=== PATIENT | female | born 1960 | race Two or more races ===

== ENCOUNTER 2022-08-05 16:38 | Inpatient (IN) | payer MEDICARE, OTHER ==
[~2022-08-05] VITALS: Ht 162.6 cm; Wt 111.1 kg
--- NOTE | 2022-08-05 17:00 | NUR ---
[id number] FRM MCC FOR NOTED SOB, WHEEZING AND LOW O2 SATURATION ALBUTEROL GIVEN PT. PLACED ON BED, AWAKE-ALERT, BREATHING UNLABORED SATURATING AT 99% WITH 5LIT VIA NC
[2022-08-05] MEDS ORDERED: methylPREDNISolone SOD SUCC 125 MG/2ML VIAL ONE (17:24)
[2022-08-05] MEDS ORDERED: methylPREDNISolone SOD SUCC 125 MG/2ML VIAL IV ONE (17:30)
[2022-08-05] MEDS ORDERED: ALBUTEROL FS 2.5 MG/3 ML VIAL.NEB NEB ONE (17:30)
--- NOTE | 2022-08-05 17:30 | NUR ---
BLOOD DRAWN AND SENT TO LAB
[2022-08-05] MEDS ORDERED: ALBUTEROL FS 2.5 MG/3 ML VIAL.NEB ONE (17:32)
[2022-08-05 18:18] LABS: BASOPHILS % (AUTO) 0.2 % (0.0-2.0); EOSINOPHILS % (AUTO) 0.4 % (0.0-6.0); HEMATOCRIT 45 % (33-45); HEMOGLOBIN 14.8 g/dL (11.5-14.8); LYMPHOCYTES # (AUTO) 0.7 K/uL (0.8-4.8); LYMPHOCYTES % (AUTO) 8.9 % (20.0-44.0); MEAN CORPUSCULAR HGB CONC 33 g/dl (31.0-36.0); MEAN CORPUSCULAR VOLUME 91 fL (82-100); MONOCYTES # (AUTO) 0.7 K/uL (0.1-1.30); MONOCYTES % (AUTO) 9.1 % (2.0-12.0); NEUTROPHILS # (AUTO) 6.5 K/uL (1.8-8.9); NEUTROPHILS % (AUTO) 81.4 % (43.0-81.0); PLATELET COUNT (AUTO) 140 K/uL (150-450)
[2022-08-05 18:28] LABS: CALCIUM, SERUM 8.9 mg/dL (8.5-10.1); CREATININE 1.4 mg/dL (0.6-1.3); POTASSIUM 4.3 mmol/L (3.5-5.1)
[2022-08-05 18:41] LABS: ALBUMIN 3.8 g/dL (3.4-5.0); BILIRUBIN,DIRECT 0.2 mg/dL (0.0-0.2); BILIRUBIN,TOTAL 0.6 mg/dL (0.2-1.0); TOTAL PROTEIN, SERUM 8.1 g/dL (6.4-8.2)
--- NOTE | 2022-08-05 19:04 | NUR ---
SWAB FOR COVID19 SENT TO LAB
--- NOTE | 2022-08-05 19:07 | NUR ---
SWAB FOR RAPID INFLLUENZA SENT TO LAB
--- NOTE | 2022-08-05 19:13 | NUR ---
DTR CYSTRAL [phone]
[2022-08-05] MEDS ORDERED: CEFTRIAXONE 1 G in IV D5W 50 ML IV ONE (19:30)
[2022-08-05] MEDS ORDERED: CEFTRIAXONE 1GM BAG (ER ONLY) 50 ML IV ONE (19:46)
--- NOTE | 2022-08-05 20:59 | NUR ---
ROOM 109
[2022-08-05] MEDS ORDERED: ONDANSETRON HCL/PF 4 MG/2 ML VIAL IVP PRN (22:00)
[2022-08-05] MEDS ORDERED: MAG HYDROX/AL HYDROX/SIMETH 30 ML UDC PO PRN (22:00)
[2022-08-05] MEDS ORDERED: Z GUARD REMEDY 4 OZ OINT TP PRN (22:00)
[2022-08-05] MEDS ORDERED: MAGNESIUM HYDROXIDE 30 ML UDC PO PRN (22:00)
[2022-08-05] MEDS ORDERED: ZOLPIDEM TARTRATE 5 MG TABLET PO PRN (22:00)
[2022-08-05] MEDS ORDERED: ACETAMINOPHEN 325 MG TABLET PO PRN (22:00)
--- NOTE | 2022-08-05 22:21 | NUR ---
PT'S AGNES NARVAEZ AWARE THAT THE PATIENT IS GOING TO BE ADMITTED AND UPDATE OM HER CONDITION.
[2022-08-05 22:35] VITALS: BP 138/77
--- NOTE | 2022-08-05 22:35 | NUR ---
ELECTRICAL ACCESSORIES II ASSEMBLER RECEIVING NOTE RECEIVED PT VIA EVERT FROM ER. PT IS ABLE TO UNDERSTAND HUNGARIAN AND OCCITAN. PT SPEECH IS NOT CLEAR. O2 WAS 5L NC DURING TRANSFER. TELE MONITOR READING ST HR 102. IV ACCESS ON RFA #20G. SKIN IS INTACT. ALL SAFETY MEASURES IMPLEMENTED. WILL CONTINUE PLAN OF CARE AND ANTICIPATE NEEDS.
--- NOTE | 2022-08-05 22:35 | NUR ---
REPORT GIVEN TO SANTOSH RN ROOM 109 FOR ELSY
--- NOTE | 2022-08-05 23:42 | NUR ---
RN NOTE SPOKE TO STEVEN FROM [facility]. PER FACILITY NO POLST ON FILE AND PT IS FULL CODE.
[2022-08-06] VITALS: BP 126/82
[2022-08-06] MEDS: FUROSEMIDE 20 MG/2 ML VIAL IV SCH ×3 (01:27→21:12)
[2022-08-06] MEDS ORDERED: ALBUTEROL FS 2.5 MG/3 ML VIAL.NEB NEB PRN (01:30)
[2022-08-06] MEDS ORDERED: AZITHROMYCIN 500 MG VIAL ONE (02:47)
[2022-08-06] MEDS: AZITHROMYCIN 500 MG in IV D5W 250 ML IV SCH ×2 (02:49→21:12)
[2022-08-06 04:00] VITALS: BP 107/67
[2022-08-06 05:15] LABS: ABG BASE EXCESS 5.8 mmol/L; ABG PCO2 64.3 mmHg (35.0-45.0); ABG PH 7.338 (7.350-7.450); ABG PO2 113.4 mmHg (75.0-100.0); COHb 0.3 % (0.5-1.5); MetHb 0.6 % (0.0-1.5); O2Hb 97.1 % (94.0-97.0); SITE, ABG Right Radial; VENT MODE, BG NASAL CANNULA 40%
--- NOTE | 2022-08-06 06:41 | NUR ---
GANG SAWYER CLOSING NOTE PT ASLEEP IN BED, AROUSES EASILY. PT UNDERSTANDS TAJIK AND WOLOF, AND COMMUNICATES BACK WITH ASL. ON NC 5L, TOLERATING WELL, NO S/S OF DISTRESS, TELE MONITOR READING SR. IV ACCESS ON RFA #20G, INTACT AND PATENT. PUT A PUREWICK IN FOR STRICT I&O.ALL DUE MEDS GIVEN. ALL SAFETY MEASURES IN PLACE. CALL LIGHT WITHIN REACH. BED LOCKED AND IN LOWEST POSITION. WILL ENDORSE TO MORNING SHIFT
--- NOTE | 2022-08-06 07:20 | NUR ---
RN notes Received patient in bed. Patient is resting without active complaint. IV site is dry, intact and patent. Telemetry showed SR HR 83/min. Call garza is placed within reach. Bed is locked and placed in the lowest position. All safety measures have been implemented. Will continue monitoring and care.
[2022-08-06 08:00] VITALS: BP 109/60
[2022-08-06 08:22] LABS: BASOPHILS % (AUTO) 0.2 % (0.0-2.0); HEMATOCRIT 39 % (33-45); LYMPHOCYTES # (AUTO) 1.1 K/uL (0.8-4.8); LYMPHOCYTES % (AUTO) 15.6 % (20.0-44.0); MEAN CORPUSCULAR HGB CONC 33 g/dl (31.0-36.0); MEAN CORPUSCULAR VOLUME 92 fL (82-100); MONOCYTES % (AUTO) 13.9 % (2.0-12.0); NEUTROPHILS # (AUTO) 5.2 K/uL (1.8-8.9); NEUTROPHILS % (AUTO) 70.3 % (43.0-81.0); PLATELET COUNT (AUTO) 131 K/uL (150-450); RED BLOOD CELL COUNT(AUTO) 4.27 MIL/uL (4.0-5.2); WHITE BLOOD COUNT (AUTO) 7.4 K/uL (4.3-11.0)
[2022-08-06 08:42] LABS: ALBUMIN 3.2 g/dL (3.4-5.0); BILIRUBIN,TOTAL 0.3 mg/dL (0.2-1.0); CALCIUM, SERUM 7.9 mg/dL (8.5-10.1); CREATININE 1.3 mg/dL (0.6-1.3); MAGNESIUM 2.5 mg/dL (1.8-2.4); PHOSPHORUS 4.8 mg/dL (2.5-4.9); POTASSIUM 4.3 mmol/L (3.5-5.1)
[2022-08-06] MEDS: CARBAMAZEPINE 200 MG TABLET PO SCH ×2 (08:57→16:42)
[2022-08-06] MEDS: DEXAMETHASONE SOD PHOSPHATE 10 MG/ML VIAL IV SCH (08:57)
[2022-08-06] MEDS: CARVEDILOL 6.25 MG TABLET PO SCH ×2 (08:57→16:40)
[2022-08-06] MEDS ORDERED: PANTOPRAZOLE 40 MG VIAL IV SCH (09:00)
[2022-08-06] MEDS ORDERED: CEFTRIAXONE 1 G in IV D5W 50 ML IV SCH (09:00)
[2022-08-06] MEDS: HEPARIN SODIUM, PORCINE 5000 UNITS/1 ML VIAL SQ SCH ×2 (09:03→21:14)
--- NOTE | 2022-08-06 10:00 | NUR ---
RN notes Reduced oxygen to 3L via NC. Patient does not have SOB. Will check SpO2.
[2022-08-06 12:00] VITALS: BP 106/68
--- NOTE | 2022-08-06 12:00 | NUR ---
OPAL notes SpO2 97% with 3L oxygen given via NC. No Sob. Assisted patient to sit out in chair for lunch. Stable gait is observed. Addendum: 08/06/22 at 1444 by STEPHY RODRIGUEZ RN Call garza is placed within reach.
[2022-08-06] MEDS: CEFTRIAXONE 2 G in IV D5W 100 ML IV SCH (13:06)
[2022-08-06] MEDS ORDERED: ROSU10TA2 PO (13:13)
[2022-08-06 16:00] VITALS: BP 100/51
--- NOTE | 2022-08-06 18:50 | NUR ---
RN notes Patient is resting in bed without active complaint. Telemetry showed SR with HR 89/min. BP is on low-side without active complaint. SpO2 WNL with 3L oxygen via NC. Call garza is placed within reach. Bed is locked and placed in the lowest position. All safety measures have been implemented. Will endorse PM nurse to continue monitoring and care.
[2022-08-06 20:00] VITALS: BP 112/70
--- NOTE | 2022-08-06 20:02 | NUR ---
RN NOTE RECEIVED PT IN BED, AWAKE ALERT. ON O2 AT 3L VIA NC. NOT IN ANY DISTRESS. DENIES ANY PAIN OR SOB. ALL SR ON TELE MONITOR SR WITH HR 82. SAFETY MEASURES IN PLACE. CALL LIGHT WITHIN REACH. WILL CONTINUE TO MONITOR
[2022-08-07] VITALS (7 sets, daily range): BP systolic 88–135; BP diastolic 58–94
--- NOTE | 2022-08-07 06:43 | NUR ---
RN NOTE PT AWAKE. TITRATED O2 TO 2L. PT NOT IN ANY DISTRESS. DENIES ANY PAIN OR SOB. SR ON TELE MONITOR HR 96. REMAIN AFEBRILE. ABLE TO MAKE NEEDS KNOWN. ALL SAFETY REMAIN IN PLACE. CALL LIGHT WITHIN REACH AT ALL TIMES. WILL ENDORSE TO AM SHIFT NURSE FOR ELSY.
--- NOTE | 2022-08-07 07:15 | NUR ---
RN notes Received patient in bed. She is asleep and is not in distress. Telemetry showed SR HR 100/min. IV site is dry and intact. Call garza is placed within reach. Bed is locked and placed in the lowest position. All safety measures have been implemented. Will continue monitoring and care.
[2022-08-07 07:57] LABS: ALBUMIN 3.2 g/dL (3.4-5.0); BILIRUBIN,TOTAL 0.2 mg/dL (0.2-1.0); CALCIUM, SERUM 7.8 mg/dL (8.5-10.1); CREATININE 1.4 mg/dL (0.6-1.3); MAGNESIUM 2.4 mg/dL (1.8-2.4); PHOSPHORUS 5.3 mg/dL (2.5-4.9); POTASSIUM 4.3 mmol/L (3.5-5.1); TOTAL PROTEIN, SERUM 6.6 g/dL (6.4-8.2)
[2022-08-07] MEDS: CARVEDILOL 6.25 MG TABLET PO SCH ×2 (09:18→16:42)
[2022-08-07] MEDS: CARBAMAZEPINE 200 MG TABLET PO SCH ×2 (09:18→16:41)
[2022-08-07] MEDS: PANTOPRAZOLE 40 MG TABLET.DR PO SCH (09:18)
[2022-08-07] MEDS: FUROSEMIDE 20 MG/2 ML VIAL IV SCH (09:19)
[2022-08-07] MEDS: DEXAMETHASONE SOD PHOSPHATE 10 MG/ML VIAL IV SCH (09:20)
[2022-08-07] MEDS: HEPARIN SODIUM, PORCINE 5000 UNITS/1 ML VIAL SQ SCH ×2 (09:28→21:19)
[2022-08-07] MEDS ORDERED: CLOT15CR5 TD (11:11)
[2022-08-07] MEDS ORDERED: CARV12.52 PO (11:11)
[2022-08-07] MEDS ORDERED: CARB200T PO (11:11)
[2022-08-07] MEDS ORDERED: CARB200T8 PO (11:11)
[2022-08-07] MEDS ORDERED: ALBU2SYR3 PO (11:11)
--- NOTE | 2022-08-07 11:24 | NUR ---
RN notes Patient's blood pressure was 88/57mmHg. Checked both arms and achieved similar results. No discomfort was reported. Informed Dr. Castillo about hypotension, who said to order bolus 500mL Q4H. Done as ordered.
[2022-08-07] MEDS ORDERED: IV NS 0.9% 500 ML IV ONE (11:30)
[2022-08-07 12:01] LABS: EOSINOPHILS % (AUTO) 0.7 % (0.0-6.0); HEMATOCRIT 41 % (33-45); HEMOGLOBIN 13.2 g/dL (11.5-14.8); LYMPHOCYTES % (AUTO) 16.9 % (20.0-44.0); MEAN CORPUSCULAR HGB CONC 33 g/dl (31.0-36.0); MEAN CORPUSCULAR VOLUME 93 fL (82-100); MONOCYTES # (AUTO) 1.1 K/uL (0.1-1.30); MONOCYTES % (AUTO) 18.3 % (2.0-12.0); NEUTROPHILS % (AUTO) 64.1 % (43.0-81.0); PLATELET COUNT (AUTO) 112 K/uL (150-450); RED BLOOD CELL COUNT(AUTO) 4.39 MIL/uL (4.0-5.2); WHITE BLOOD COUNT (AUTO) 6.2 K/uL (4.3-11.0)
--- NOTE | 2022-08-07 12:30 | NUR ---
RN notes Checked patient again and noticed that her forearm became edematous from the fluid challenge. Stopped the IVF. Will keep observe of IV site.
--- NOTE | 2022-08-07 12:30 | NUR ---
RN notes Rechecked BP, 104/49mmHg. No discomfort.
[2022-08-07] MEDS: IPRATROPIUM/ALBUTEROL INHALER IH SCH ×2 (13:43→20:14)
--- NOTE | 2022-08-07 16:06 | NUR ---
SS CONSULT requested for assistance with DPOA. SW will follow up at a later time.
[2022-08-07] MEDS: CEFTRIAXONE 2 G in IV D5W 100 ML IV SCH (18:54)
--- NOTE | 2022-08-07 18:56 | NUR ---
RN notes Right midline has been inserted by vascular nurse. It's patent and dry. Started rocephin that was due 1200.
--- NOTE | 2022-08-07 19:34 | NUR ---
RN notes Patient is resting in bed without active complaint. SpO2 95% with 2L oxygen given via NC. Telemetry showed SR. Right UA midline is working well. Call garza is placed within reach. Bed is locked and placed in the lowest position. All safety measures have been implemented. WIll endorse PM nurse to continue monitoring and care.
--- NOTE | 2022-08-07 20:21 | NUR ---
RN NOTE PT AWAKE, ALERT, WATCHING TV. DENIES ANY PAIN OR SOB. ON 2L O2 SATING 95%. EDGAR ML PATENT AND INTACT. ALL SAFETY MEASURES IN PLACE. WILL CONTINUE TO MONITOR.
[2022-08-07] MEDS: AZITHROMYCIN 500 MG in IV D5W 250 ML IV SCH (21:17)
--- NOTE | 2022-08-07 23:52 | NUR ---
RT NOTE PT AWAKE/ALERT AND RESPONDING TO COMMANDS. PT PLACED ON BIPAP WITH CURRENT SETTINGS OF 15/5, BUR 16, 30%. MASK SECURED WITH MEPILEX. ALARMS ON AND AUDIBLE. BIPAP PLUGGED TO RED OUTLET. NO RESPIRATORY DISTRESS NOTED. WILL CONTINUE TO MONITOR CLOSELY. OPAL JOHNSON AWARE.
[2022-08-08] VITALS: BP 120/67
--- NOTE | 2022-08-08 01:00 | NUR ---
RN NOTE PT TOLERATING BIPAP SETTINGS. NOT IN ANY DISTRESS. WILL CONTINUE TO MONITOR.
[2022-08-08] MEDS: IPRATROPIUM/ALBUTEROL INHALER IH SCH ×4 (01:30→20:14)
[2022-08-08 04:00] VITALS: BP 117/61
--- NOTE | 2022-08-08 05:55 | NUR ---
RT NOTE PT TOLERATED NOC BIPAP WELL WITH NO COMPLICATIONS. PT REMOVED OFF BIPAP AT THIS TIME AND PLACED ON 28% NASAL CANNULA. SPO2 @ 95%, HR 80, RR 18. NO RESPIRATORY DISTRESS NOTED.
[2022-08-08 06:17] LABS: BASOPHILS % (AUTO) 0.2 % (0.0-2.0); EOSINOPHILS % (AUTO) 0.9 % (0.0-6.0); HEMATOCRIT 35 % (33-45); HEMOGLOBIN 11.6 g/dL (11.5-14.8); LYMPHOCYTES # (AUTO) 1.4 K/uL (0.8-4.8); LYMPHOCYTES % (AUTO) 33.7 % (20.0-44.0); MEAN CORPUSCULAR HGB CONC 33 g/dl (31.0-36.0); MEAN CORPUSCULAR VOLUME 92 fL (82-100); MONOCYTES # (AUTO) 0.7 K/uL (0.1-1.30); MONOCYTES % (AUTO) 16.2 % (2.0-12.0); NEUTROPHILS # (AUTO) 2.1 K/uL (1.8-8.9); PLATELET COUNT (AUTO) 104 K/uL (150-450); RED BLOOD CELL COUNT(AUTO) 3.81 MIL/uL (4.0-5.2); WHITE BLOOD COUNT (AUTO) 4.2 K/uL (4.3-11.0)
--- NOTE | 2022-08-08 07:10 | NUR ---
RN NOTE RECEIVED PATIENT IN BED RESTING ALERT ORIENTED X2-3 VERBALLY RESPONSIVE,ON 2L OXYGEN VIA NASAL CANNULA,O2:93% IV SITE IS ON RIGHT UPPER ARM MIDLINE INTACT PATENT,INCONTINENT BOWEL/BLADDER,FEMALE PUREWEAK IN PLACE,SAFETY MEASURE IMPLEMENT BED IN LOW POSITION AND LOCKED,BED ALARM IS ON,CONTINUE TO MONITOR.
[2022-08-08 07:14] LABS: ALBUMIN 2.7 g/dL (3.4-5.0); BILIRUBIN,TOTAL 0.2 mg/dL (0.2-1.0); CALCIUM, SERUM 7.7 mg/dL (8.5-10.1); CREATININE 1.4 mg/dL (0.6-1.3); MAGNESIUM 2.3 mg/dL (1.8-2.4); PHOSPHORUS 4.8 mg/dL (2.5-4.9); POTASSIUM 3.3 mmol/L (3.5-5.1); TOTAL PROTEIN, SERUM 6.3 g/dL (6.4-8.2)
--- NOTE | 2022-08-08 07:20 | NUR ---
RN NOTE PT BACK ON 2L O2 VIA NC. TOLERATING WELL. PT DENIES ANY PAIN OR SOB. DUE MEDS WERE GIVEN ORDERED. CALL LIGHT WITHIN REACH AT ALL TIMES. ENDORSED TO LUIS F FOR ELSY.
[2022-08-08 08:00] VITALS: BP 104/62
[2022-08-08] MEDS: HEPARIN SODIUM, PORCINE 5000 UNITS/1 ML VIAL SQ SCH ×2 (08:14→20:01)
[2022-08-08] MEDS: PANTOPRAZOLE 40 MG TABLET.DR PO SCH (08:15)
[2022-08-08] MEDS: CARBAMAZEPINE 200 MG TABLET PO SCH ×2 (08:15→16:32)
[2022-08-08 08:16] LABS: ABG BASE EXCESS 5.6 mmol/L; ABG PH 7.287 (7.350-7.450); ABG PO2 76.7 mmHg (75.0-100.0); COHb 0.1 % (0.5-1.5); MetHb 0.4 % (0.0-1.5); O2Hb 94.2 % (94.0-97.0); SITE, ABG Right Radial
[2022-08-08] MEDS: DEXAMETHASONE SOD PHOSPHATE 10 MG/ML VIAL IV SCH (08:16)
[2022-08-08] MEDS: CARVEDILOL 6.25 MG TABLET PO SCH ×2 (08:56→16:31)
--- NOTE | 2022-08-08 09:00 | NUR ---
RN NOTE COREG 12.5 MG NOT GIVEN DUE TO BP 104/62 CONTINUE TO MONITOR.
--- NOTE | 2022-08-08 09:34 | NUR ---
Patient is awkae, alert, orientedx3, no complaint of pain, no sob, SPO2-97% on 1l/min, RT change O2 to 1l/min as per order. Vital signs are stable.
[2022-08-08] MEDS ORDERED: POTASSIUM CHLORIDE 20 MEQ TAB.PRT.SR PO ONE (11:00)
[2022-08-08] MEDS: CEFTRIAXONE 2 G in IV D5W 100 ML IV SCH (11:56)
[2022-08-08 12:00] VITALS: BP 134/74
[2022-08-08 15:14] LABS: C-REACTIVE PROTEIN 14.4 mg/dL (0.0-0.9)
[2022-08-08 15:23] LABS: LYMPHOCYTES % (MANUAL) 33 % (16-48); MONOCYTES % (MANUAL) 12 % (0-11.0); NEUTROPHILS % (MANUAL) 55 (42-76)
[2022-08-08 16:00] VITALS: BP 132/69
--- NOTE | 2022-08-08 18:38 | NUR ---
PATIENT IS AWAKE,ALERT,ORIENTEDX3, NO COMPLAINT OF PAIN, VITAL SIGNS ARE STABLE, STILL ON O2-1L/MIN, SPO2-98%, NO SIGNS OF SHORT OF BREATHE, PATIENT EATS HER MEAL WELL.
--- NOTE | 2022-08-08 19:40 | NUR ---
POWER EQUIPMENT MECHANICS INSTRUCTOR OPENING NOTE RECEIVED PATIENT IN BED AWAKE ALERT ORIENTED X 2-3 VERBALLY RESPONSIVE, ON 1L OXYGEN VIA NASAL CANNULA,O2 94% IV SITE IS ON RIGHT UPPER ARM MIDLINE INTACT PATENT RUNNING NS AT TKO, ON TELEMONITORING CURRENTLY READING SR, PT IS INCONTINENT BOWEL/BLADDER, WITH FEMALE PUREWICK IN PLACE, SAFETY MEASURES IMPLEMENTED, BED IN LOWEST AND LOCKED POSITION, BED ALARM IS ON, WILL CONTINUE TO MONITOR THROUGHOUT THE SHIFT.
[2022-08-08 20:00] VITALS: BP 90/51
[2022-08-08] MEDS: AZITHROMYCIN 500 MG in IV D5W 250 ML IV SCH (20:00)
--- NOTE | 2022-08-08 20:17 | NUR ---
RT NOTE PT PLACED ON BIPAP AT THIS TIME. MASK SECURED. NO RESPIRATORY DISTRESS NOTED. WILL CONTINUE TO MONITOR T/O SHIFT. OPAL GARCIA @ BEDSIDE.
[2022-08-09] VITALS (12 sets, daily range): BP systolic 94–121; BP diastolic 55–72
[2022-08-09] MEDS: IPRATROPIUM/ALBUTEROL INHALER IH SCH ×4 (01:30→19:30)
--- NOTE | 2022-08-09 07:00 | NUR ---
STOCKROOM ASSOCIATE CLOSING NOTE PATIENT REMAINS IN BED AWAKE ALERT ORIENTED X 2-3 VERBALLY RESPONSIVE, ON NOC BIPAP, O2 94% IV SITE IS ON RIGHT UPPER ARM MIDLINE INTACT PATENT RUNNING NS AT TKO, ON TELEMONITORING CURRENTLY READING SR AT 82, PT IS INCONTINENT BOWEL/BLADDER, WITH FEMALE PUREWICK IN PLACE, ALL DUE MEDS GIVEN, KEPT DRY AND CLEAN, SAFETY MEASURES IMPLEMENTED, BED IN LOWEST AND LOCKED POSITION, BED ALARM IS ON, WILL ENDORSE TO AM SHIFT NURSE FOR CONTINUITY OF CARE.
[2022-08-09 07:17] LABS: BASOPHILS % (AUTO) 0.2 % (0.0-2.0); EOSINOPHILS % (AUTO) 2.3 % (0.0-6.0); HEMATOCRIT 39 % (33-45); HEMOGLOBIN 12.7 g/dL (11.5-14.8); LYMPHOCYTES # (AUTO) 1.5 K/uL (0.8-4.8); MEAN CORPUSCULAR HGB CONC 33 g/dl (31.0-36.0); MEAN CORPUSCULAR VOLUME 92 fL (82-100); MONOCYTES # (AUTO) 0.6 K/uL (0.1-1.30); MONOCYTES % (AUTO) 16.5 % (2.0-12.0); NEUTROPHILS # (AUTO) 1.6 K/uL (1.8-8.9); PLATELET COUNT (AUTO) 117 K/uL (150-450); RED BLOOD CELL COUNT(AUTO) 4.24 MIL/uL (4.0-5.2); WHITE BLOOD COUNT (AUTO) 3.8 K/uL (4.3-11.0)
--- NOTE | 2022-08-09 07:30 | NUR ---
RN NOTE RECEIVED PATIENT IN BED ALERT ORIENTED 2-3 VERBALLY RESPONSIVE ON 3L OXYGEN VIA NASAL CANNULA O2:94% IV SITE IS ON RIGHT UPPER ARM MIDLINE INTACT PATENT, INCONTINENT BOWEL/BLADDER, SAFETY MEASURE IMPLEMENT BED IN LOW POSITION AND LOCKED,CALL LIGHT WITHIN REACH CONTINUE TO MONITOR
[2022-08-09 07:32] LABS: ALBUMIN 2.7 g/dL (3.4-5.0); BILIRUBIN,TOTAL 0.2 mg/dL (0.2-1.0); CALCIUM, SERUM 8.1 mg/dL (8.5-10.1); CREATININE 1.2 mg/dL (0.6-1.3); MAGNESIUM 2.7 mg/dL (1.8-2.4); PHOSPHORUS 3.3 mg/dL (2.5-4.9); POTASSIUM 3.7 mmol/L (3.5-5.1); TOTAL PROTEIN, SERUM 6.8 g/dL (6.4-8.2)
[2022-08-09] MEDS: CARVEDILOL 6.25 MG TABLET PO SCH ×2 (08:01→16:19)
[2022-08-09] MEDS: PANTOPRAZOLE 40 MG TABLET.DR PO SCH (08:01)
[2022-08-09] MEDS: HEPARIN SODIUM, PORCINE 5000 UNITS/1 ML VIAL SQ SCH ×2 (08:02→21:57)
[2022-08-09] MEDS: DEXAMETHASONE SOD PHOSPHATE 10 MG/ML VIAL IV SCH (08:08)
[2022-08-09] MEDS: CARBAMAZEPINE 200 MG TABLET PO SCH ×2 (08:37→16:11)
--- NOTE | 2022-08-09 09:40 | NUR ---
RECEIVED PATIENT IS AWAKE,ALERT,ORIENTEDX3, NO SIGNS AND SYMPTOMS OF IN DISTRESS, CONTINUE MONITORING
[2022-08-09] MEDS: CEFTRIAXONE 2 G in IV D5W 100 ML IV SCH (12:31)
[2022-08-09 14:08] LABS: ABG BASE EXCESS 4.6 mmol/L; ABG OXYGEN SATURATION 96.9 % (92.0-98.5); ABG PCO2 82.5 mmHg (35.0-45.0); ABG PH 7.242 (7.350-7.450); ABG PO2 98.6 mmHg (75.0-100.0); AaDO2 7.1 mmHg; COHb 0.9 % (0.5-1.5); MetHb 0.5 % (0.0-1.5); O2Hb 95.5 % (94.0-97.0); SITE, ABG Right Radial; VENT MODE, BG 2.5 LPM
[2022-08-09 15:29] LABS: BAND % (MANUAL) 2 % (0.0-5.0); EOSINOPHILS % (MANUAL) 4 % (0-4); LYMPHOCYTES % (MANUAL) 40 % (16-48)
[2022-08-09 15:30] LABS: MONOCYTES % (MANUAL) 12 % (0-11.0)
[2022-08-09 15:31] LABS: NEUTROPHILS % (MANUAL) 42 (42-76)
--- NOTE | 2022-08-09 15:44 | NUR ---
STILL AWAITS ICU BED ,PER ICU CHARGE BED WILL BE AVAILABLE BY 5PM,NURSING SUP AWARE.
--- NOTE | 2022-08-09 16:45 | NUR ---
RN NOTE PATIENT TRANSFERRED TO ICU ON ACLS PROTOCOL PER ORDER.
--- NOTE | 2022-08-09 16:48 | NUR ---
@3014 PATIENT TRANSFERED TO ICU 255 FOR FURTHER MONITORING, REPORT GIVEN TO ICU NURSE STEPHEN, VITAL SIGNS ARE STABLE, SPO2-95% ON 2L/MIN VIA N/C. INFORMED FAMILY MEMBER , BRYNN BOONE (SISTER), INFORMED BOARD AND CARE FACILITY WELL AND SPOKE TO
[2022-08-09 17:38] LABS: ABG BASE EXCESS 7.7 mmol/L; ABG PCO2 85.9 mmHg (35.0-45.0); ABG PH 7.263 (7.350-7.450); COHb 0.9 % (0.5-1.5); MetHb 0.5 % (0.0-1.5); O2Hb 95.6 % (94.0-97.0); SITE, ABG Right Radial; VENT MODE, BG BIPAP 15/5 R 16 30%
--- NOTE | 2022-08-09 19:37 | NUR ---
LOCK UP WORKER. INITIAL ASSESSMENT. RECEIVED THE PT REST IN BED. AWAKE, BIPAP ON. SETTINGS 25/5, RATE IS 16, FIO2 30%. SAT 97%. NO ACUTE DISTRESS NOTED. ASSISTANT FOOTBALL COACH SHOWING .A FIB. HOB ELEVATED. IV RT UPPER KATHYA MID LINE. WILL CONTINUE TO MONITOR VITALS.
[2022-08-09 20:16] LABS: ABG BASE EXCESS 4.5 mmol/L; ABG OXYGEN SATURATION 94.2 % (92.0-98.5); ABG PCO2 69.4 mmHg (35.0-45.0); ABG PH 7.296 (7.350-7.450); ABG PO2 71.3 mmHg (75.0-100.0); AaDO2 61.1 mmHg; COHb 1.2 % (0.5-1.5); MetHb 0.3 % (0.0-1.5); O2Hb 92.8 % (94.0-97.0); SITE, ABG Right Brachial; VENT MODE, BG BIPAP 25/5 RR16 30%
[2022-08-09] MEDS: AZITHROMYCIN 500 MG in IV D5W 250 ML IV SCH (21:56)
[2022-08-10] VITALS (24 sets, daily range): BP systolic 99–144; BP diastolic 55–73
[2022-08-10] MEDS: IPRATROPIUM/ALBUTEROL INHALER IH SCH ×4 (01:30→19:41)
--- NOTE | 2022-08-10 03:03 | NUR ---
AM CARE GIVEN. REMAINING SAME OXYGEN TOLERATED WELL. SATURATION 98%. NO ACUTE DISTRESS NOTED. SHAREPOINT ANALYST SHOWING NSR. TKO RUNNING. AFEBRILE. WILL CONTINUE TO MONITOR VITALS
[2022-08-10 05:06] LABS: BASOPHILS % (AUTO) 0.2 % (0.0-2.0); EOSINOPHILS % (AUTO) 1.2 % (0.0-6.0); HEMATOCRIT 38 % (33-45); HEMOGLOBIN 12.2 g/dL (11.5-14.8); LYMPHOCYTES # (AUTO) 1.6 K/uL (0.8-4.8); LYMPHOCYTES % (AUTO) 33.5 % (20.0-44.0); MEAN CORPUSCULAR HGB CONC 33 g/dl (31.0-36.0); MEAN CORPUSCULAR VOLUME 92 fL (82-100); MONOCYTES # (AUTO) 0.7 K/uL (0.1-1.30); MONOCYTES % (AUTO) 14.7 % (2.0-12.0); NEUTROPHILS # (AUTO) 2.5 K/uL (1.8-8.9); NEUTROPHILS % (AUTO) 50.4 % (43.0-81.0); PLATELET COUNT (AUTO) 123 K/uL (150-450); RED BLOOD CELL COUNT(AUTO) 4.09 MIL/uL (4.0-5.2); WHITE BLOOD COUNT (AUTO) 4.9 K/uL (4.3-11.0)
[2022-08-10 05:19] LABS: ALBUMIN 2.7 g/dL (3.4-5.0); BILIRUBIN,TOTAL 0.2 mg/dL (0.2-1.0); CALCIUM, SERUM 8.4 mg/dL (8.5-10.1); CREATININE 1.2 mg/dL (0.6-1.3); MAGNESIUM 2.6 mg/dL (1.8-2.4); PHOSPHORUS 3.7 mg/dL (2.5-4.9); POTASSIUM 3.7 mmol/L (3.5-5.1); TOTAL PROTEIN, SERUM 6.6 g/dL (6.4-8.2)
--- NOTE | 2022-08-10 07:00 | NUR ---
RN NOTES RECEIVED THE PT ON BED. A/O x3, ON BIPAP , TOLERATING SETTINGS 25/5, RATE IS 16, FIO2 30%. WELL, SAT 97%. NO ACUTE DISTRESS NOTED. INVENTORY CONTROL SPECIALIST SHOWING SR HR IN 60'S, HOB ELEVATED. IV RT UPPER KATHYA MID LINE. WILL CONTINUE TO MONITOR
[2022-08-10] MEDS: PANTOPRAZOLE 40 MG TABLET.DR PO SCH (08:12)
[2022-08-10] MEDS: CARBAMAZEPINE 200 MG TABLET PO SCH ×2 (08:12→16:33)
[2022-08-10] MEDS: CARVEDILOL 6.25 MG TABLET PO SCH ×2 (08:13→16:33)
[2022-08-10] MEDS: HEPARIN SODIUM, PORCINE 5000 UNITS/1 ML VIAL SQ SCH ×2 (08:14→21:28)
[2022-08-10] MEDS: DEXAMETHASONE SOD PHOSPHATE 10 MG/ML VIAL IV SCH (08:14)
--- NOTE | 2022-08-10 11:00 | NUR ---
RN NOTES PT ON 1L O2 N/C , TOLERATING WELL, O2 SAT WNL, CONTINUE TO MONITOR.
[2022-08-10 11:30] LABS: ABG PCO2 62.5 mmHg (35.0-45.0); ABG PO2 59.6 mmHg (75.0-100.0); COHb 0.2 % (0.5-1.5); MetHb 0.4 % (0.0-1.5); O2Hb 89.5 % (94.0-97.0); SITE, ABG Right Radial; VENT MODE, BG N/C
[2022-08-10] MEDS: CEFTRIAXONE 2 G in IV D5W 100 ML IV SCH (12:03)
--- NOTE | 2022-08-10 13:00 | NUR ---
RN NOTES PT ON 2L O2 N/C , O2 SAT WNL, , SOB ON EXERTION, CONTINUE TO MONITOR .
--- NOTE | 2022-08-10 17:00 | NUR ---
SS Note: SW followed up with the pt.'s sister, Quyen Pang [phone] who stated they are interested in becoming the pt.'s DPOA. SW provided education that because the pt. has Hx. of cognitive delay the pt. may not have the capacity to provide informed consent. BRANDY emailed Quyen ([email or web address]) educational material on conservatorship and referred her [facility] at [phone] for assistance with applying. BRANDY also informed them that [facility] may be able to assist the family with this as well. Quyen expressed understanding and stated they will follow up.
--- NOTE | 2022-08-10 18:08 | NUR ---
RN NOTES PT REMAINS ON 1 L O2 N/C , O2 SAT WNL, PT ALERT/ MOUTH WORDS , ON TELE SR , NO DISTESS NOTED, WILL ENDORSE TO INTERNAL WHOLESALER NURSE FOR CONTINUITY OF CARE
[2022-08-11] VITALS (23 sets, daily range): BP systolic 99–146; BP diastolic 58–80
[2022-08-11 04:29] LABS: BASOPHILS % (AUTO) 0.3 % (0.0-2.0); EOSINOPHILS % (AUTO) 0.6 % (0.0-6.0); HEMATOCRIT 37 % (33-45); HEMOGLOBIN 12.3 g/dL (11.5-14.8); LYMPHOCYTES # (AUTO) 1.8 K/uL (0.8-4.8); LYMPHOCYTES % (AUTO) 35.2 % (20.0-44.0); MEAN CORPUSCULAR HGB CONC 33 g/dl (31.0-36.0); MEAN CORPUSCULAR VOLUME 91 fL (82-100); MONOCYTES # (AUTO) 0.6 K/uL (0.1-1.30); MONOCYTES % (AUTO) 11.5 % (2.0-12.0); NEUTROPHILS # (AUTO) 2.8 K/uL (1.8-8.9); NEUTROPHILS % (AUTO) 52.4 % (43.0-81.0); PLATELET COUNT (AUTO) 112 K/uL (150-450); RED BLOOD CELL COUNT(AUTO) 4.06 MIL/uL (4.0-5.2); WHITE BLOOD COUNT (AUTO) 5.2 K/uL (4.3-11.0)
[2022-08-11 04:46] LABS: ALBUMIN 2.7 g/dL (3.4-5.0); BILIRUBIN,TOTAL 0.2 mg/dL (0.2-1.0); CALCIUM, SERUM 8.4 mg/dL (8.5-10.1); MAGNESIUM 2.7 mg/dL (1.8-2.4); POTASSIUM 3.9 mmol/L (3.5-5.1); TOTAL PROTEIN, SERUM 6.6 g/dL (6.4-8.2)
--- NOTE | 2022-08-11 06:21 | NUR ---
pt was switched to bipap from 2 li nc and switched back in the am with stats above 92%. no s/s sob. pt was awake all night. one instance of bm. uo 400.
--- NOTE | 2022-08-11 07:05 | NUR ---
SCENIC ARTS SUPERVISOR OPENING NOTE RECEIVED PATIENT IN BED AWAKE ALERT ORIENTED X 2-3 VERBALLY RESPONSIVE, ON 2L OXYGEN VIA NASAL CANNULA,O2 96% IV SITE IS ON RIGHT UPPER ARM MIDLINE INTACT PATENT RUNNING NS AT TKO, ON TELEMONITORING CURRENTLY READING SR, PT IS INCONTINENT BOWEL/BLADDER, WITH FEMALE PUREWICK IN PLACE, SAFETY MEASURES IMPLEMENTED, BED IN LOWEST AND LOCKED POSITION, BED ALARM IS ON, WILL CONTINUE TO MONITOR THROUGHOUT THE SHIFT.
[2022-08-11] MEDS: CARBAMAZEPINE 200 MG TABLET PO SCH ×2 (08:20→16:07)
[2022-08-11] MEDS: DEXAMETHASONE SOD PHOSPHATE 10 MG/ML VIAL IV SCH (08:20)
[2022-08-11] MEDS: PANTOPRAZOLE 40 MG TABLET.DR PO SCH (08:20)
[2022-08-11] MEDS: CARVEDILOL 6.25 MG TABLET PO SCH ×2 (08:20→16:08)
[2022-08-11] MEDS: HEPARIN SODIUM, PORCINE 5000 UNITS/1 ML VIAL SQ SCH ×2 (08:21→21:56)
[2022-08-11] MEDS: CEFTRIAXONE 2 G in IV D5W 100 ML IV SCH (11:04)
--- NOTE | 2022-08-11 11:30 | NUR ---
ICU/RN DR YING [place] AND DR LAZO SEEN THE PT .PT IS STABLE TO BE TRANSFER TO [facility].BI-PAP AT NIGHT AND N/C DURING THE DAY.
--- NOTE | 2022-08-11 18:30 | NUR ---
RN NOTE PATIENT WAS TRANSFERRED FROM ICU VIA BED ACCOMPANIED AND REPORT BY OPAL ORDAZ. VS: BP 121/58, HR: 72, RR: 18, 02 95 ON 2L NC, AND TEMP 98.0. IV ACCESS EDGAR ML SL. INTACT AND PATENT. ALL SAFETY MEASURES IN PLACE. WILL ENDORSE CONTINUITY OF CARE TO MAIL SORTING SUPERVISOR
--- NOTE | 2022-08-11 18:30 | NUR ---
RN NOTE PATIENT WAS TRANSFERRED TO THE [facility]. REPORT GIVEN TO THE MARAL JOSEPH
--- NOTE | 2022-08-11 19:10 | NUR ---
RN NOTE PATIENT IN BED, AO X 4, NON VERBAL BUT USES SIGN LANGUAGE AND WRITING, IN NO ACUTE DISTRESS, SATURATION AT 98% ON 2L VIA NC, SR ON THE MONITOR, HR IS 60. EDGAR MIDLINE PATENT AND FLUSHING WELL, NO S/S OF INFILTRATION.SAFETY MEASURES IN PLACE, BED IS LOCKED AND AT LOWEST POSITION, HOB ELEVATED, CALL LIGHT WITHIN REACH OF PATIENT. WILL CONT TO MONITOR AND REASSESS.
[2022-08-11] MEDS: IPRATROPIUM/ALBUTEROL INHALER IH SCH (19:30)
[2022-08-12] VITALS: BP 113/66
--- NOTE | 2022-08-12 01:31 | NUR ---
PT REMOVED HER BIPAP MASK PER RN. NO SOB. PT ON 2L NC NO DISTRESS.
[2022-08-12] MEDS: IPRATROPIUM/ALBUTEROL INHALER IH SCH ×4 (01:39→19:30)
[2022-08-12 04:00] VITALS: BP 114/74
--- NOTE | 2022-08-12 07:41 | NUR ---
RN NOTE PT RECEIVED IN BED, ON O2 VIA NC @2L. PT RESPONSIVE TO STIMULI. WITH IV ACCESS ON EDGAR IN PLACE AND PATENT. NO FLUIDS. SAFETY MAINTAINED. WILL CONTINUE TO MONITOR.
[2022-08-12 08:00] VITALS: BP 115/59
[2022-08-12] MEDS: CARVEDILOL 6.25 MG TABLET PO SCH ×2 (09:27→17:00)
[2022-08-12] MEDS: PANTOPRAZOLE 40 MG TABLET.DR PO SCH (09:27)
[2022-08-12] MEDS: CARBAMAZEPINE 200 MG TABLET PO SCH ×2 (09:27→17:20)
[2022-08-12] MEDS: DEXAMETHASONE SOD PHOSPHATE 10 MG/ML VIAL IV SCH (09:28)
[2022-08-12] MEDS: HEPARIN SODIUM, PORCINE 5000 UNITS/1 ML VIAL SQ SCH ×2 (09:29→20:36)
[2022-08-12 12:00] VITALS: BP 110/54
[2022-08-12] MEDS: CEFTRIAXONE 2 G in IV D5W 100 ML IV SCH (12:18)
[2022-08-12 16:00] VITALS: BP 108/64
--- NOTE | 2022-08-12 18:21 | NUR ---
RN NOTE PT RESTING IN BED, ON O2 VIA NC @2L. PT VERBALLY RESPONSIVE TO STIMULI. WITH IV ACCESS ON EDGAR IN PLACE AND PATENT. NO FLUIDS. SAFETY MAINTAINED. DUE MEDICATION GIVEN, AM/PM CARE RENDERED. V/S STABLE, PT NOT IN DISTRESS.
--- NOTE | 2022-08-12 19:30 | NUR ---
RN OPENING NOTE RECEIVED PATIENT IN BED, A/O X 3-4, NON VERBAL BUT USES SIGN LANGUAGE TO COMMUNICATE, NO S/SX OF ACUTE RESPI DISTRESS NOTED AT THIS TIME, SATURATION AT 98% ON 2L VIA NC, SR ON THE MONITOR, HR IN 70s. EDGAR MIDLINE PATENT, INTACT AND FLUSHING WELL, NO S/S OF INFILTRATION. ALL SAFETY MEASURES IN PLACE, BED IS LOCKED AND AT LOWEST POSITION, HOB ELEVATED, SR UP X 3, CALL LIGHT WITHIN REACH OF PATIENT. WILL CONT TO MONITOR AND REASSESS.
[2022-08-12 20:00] VITALS: BP 126/55
[2022-08-13] VITALS: BP 130/58
--- NOTE | 2022-08-13 01:30 | NUR ---
Pt placed on NOC Bipap per MD order, OPAL Clancy informed.
[2022-08-13] MEDS: IPRATROPIUM/ALBUTEROL INHALER IH SCH ×4 (01:57→19:30)
[2022-08-13 04:00] VITALS: BP 117/51
--- NOTE | 2022-08-13 06:17 | NUR ---
RN NOTE NO SIGNIFICANT CHANGE T/O THE NIGHT. ALL VS STABLE, SR ON THE TELE MONITOR. NO S/SX OF RESPI DISTRESS NOTED. ALL DUE MEDS GIVEN. RM CARE DONE. TURNED AND REPOSITIONED. WILL ENDORSE TO AM SHIFT NURSE FOR ELSY.
--- NOTE | 2022-08-13 07:15 | NUR ---
RN notes Received patient in bed. She is resting without active complaint. Telemetry showed SB with HR 54/min. Not in respiratory distress with 2L oxygen given via NC. IV site is dry and intact. Call garza is placed within reach. Bed is locked and placed in the lowest position. All safety measures have been implemented. Will continue monitoring and care.
[2022-08-13 08:00] VITALS: BP 119/64
[2022-08-13 08:20] LABS: CALCIUM, SERUM 7.9 mg/dL (8.5-10.1); CREATININE 0.9 mg/dL (0.6-1.3); POTASSIUM 3.6 mmol/L (3.5-5.1)
[2022-08-13] MEDS: CARVEDILOL 6.25 MG TABLET PO SCH ×2 (09:01→16:48)
[2022-08-13] MEDS: PANTOPRAZOLE 40 MG TABLET.DR PO SCH (09:02)
[2022-08-13] MEDS: DEXAMETHASONE SOD PHOSPHATE 10 MG/ML VIAL IV SCH (09:02)
[2022-08-13] MEDS: CARBAMAZEPINE 200 MG TABLET PO SCH ×2 (09:02→16:48)
[2022-08-13] MEDS: HEPARIN SODIUM, PORCINE 5000 UNITS/1 ML VIAL SQ SCH ×2 (09:06→20:42)
[2022-08-13 12:00] VITALS: BP_SYST 119; BP_SYST 125; BP_DIAS 64; BP_DIAS 77
[2022-08-13] MEDS: CEFTRIAXONE 2 G in IV D5W 100 ML IV SCH (12:04)
--- NOTE | 2022-08-13 12:43 | NUR ---
RN notes Assisted patient to sit out of bed. Minimal assistance has been provided. Tolerated well.
[2022-08-13 16:00] VITALS: BP 127/64
--- NOTE | 2022-08-13 18:41 | NUR ---
RN notes Patient is resting without active complaint. Telemetry showed SB with HR 60-80/min. Not in respiratory distress with 2L oxygen given via NC. IV site is dry and intact. Patient's appetite is good in this shift. She also tolerated sit out for two hours. Call garza is placed within reach. Bed is locked and placed in the lowest position. All safety measures have been implemented. Will continue monitoring and care.
--- NOTE | 2022-08-13 19:40 | NUR ---
REGISTRAR COLLEGE OR UNIVERSITY OPENING NOTE RECEIVED PATIENT IN BED AWAKE ALERT ORIENTED X 2-3 VERBALLY RESPONSIVE, ON 2L OXYGEN VIA NASAL CANNULA, O2 94% IV SITE IS ON RIGHT UPPER ARM MIDLINE INTACT PATENT RUNNING NS AT TKO, ON TELEMONITORING CURRENTLY READING SR, PT IS INCONTINENT BOWEL/BLADDER, WITH FEMALE PUREWICK IN PLACE, SAFETY MEASURES IMPLEMENTED, BED IN LOWEST AND LOCKED POSITION, BED ALARM IS ON, WILL CONTINUE TO MONITOR THROUGHOUT THE SHIFT.
[2022-08-13 20:00] VITALS: BP 128/65
[2022-08-14] VITALS: BP 148/80
[2022-08-14] MEDS: IPRATROPIUM/ALBUTEROL INHALER IH SCH ×4 (01:32→20:25)
[2022-08-14 04:00] VITALS: BP 145/78
--- NOTE | 2022-08-14 07:20 | NUR ---
NURSES SUPERINTENDENT OPENING NOTE RECEIVED PATIENT IN BED ASLEEP BUT EASILY AROUSES TO VOICE AND TOUCH. PATIENT IS VERBALLY RESPONSIVE BUT UNABLE TO FULLY STATE HER NAME. PATIENT TRIED TO SAY LIONEL BUT WAS HARD TO FULLY DETERMINE DUE TO HER COGNITIVE DISABILITY. PATIENT HAS NO RESPIRATORY DISTRESS NOTED AT THIS TIME. ON OXYGEN @ 2L/MIN VIA N/C WITH OXYGEN SATURATION OF 96%. ON SR WITH PAC'S WITH HR OF 84 ON TELE MONITOR. NO C/O PAIN OR DISCOMFORT NOTED AT THIS TIME. IV SITE ON RIGHT UPPER ARM MIDLINE IS INTACT, PATENT AND FLUSHES WELL, NO S/S INFILTRATION NOTED. PUREWICK INTACT DRAINING WITH YELLOW COLORED URINE ON THE CANISTER. ALL SAFETY MEASURES IMPLEMENTED. BED LOCKED AND IN LOWEST POSITION WITH BED ALARM ON. CALL LIGHT WITHIN REACH. WILL CONTINUE TO MONITOR PATIENT THROUGHOUT SHIFT.
[2022-08-14 08:00] VITALS: BP 119/57
[2022-08-14] MEDS: CARBAMAZEPINE 200 MG TABLET PO SCH ×2 (08:28→17:22)
[2022-08-14] MEDS: PANTOPRAZOLE 40 MG TABLET.DR PO SCH (08:28)
[2022-08-14] MEDS: DEXAMETHASONE SOD PHOSPHATE 10 MG/ML VIAL IV SCH (08:29)
[2022-08-14] MEDS: HEPARIN SODIUM, PORCINE 5000 UNITS/1 ML VIAL SQ SCH ×2 (08:32→20:41)
[2022-08-14] MEDS: CARVEDILOL 6.25 MG TABLET PO SCH ×2 (08:36→17:22)
[2022-08-14] MEDS: CEFTRIAXONE 2 G in IV D5W 100 ML IV SCH (11:24)
[2022-08-14 12:00] VITALS: BP 125/62
[2022-08-14 16:00] VITALS: BP 124/59
--- NOTE | 2022-08-14 18:57 | NUR ---
PARALEGALS CLOSING NOTES: PATIENT IN BED AWAKE, ALERT AND ANSWERS TO HER SAME WHEN CALLED. PATIENT HAS NO S/S PAIN OR DISCOMFORT THROUGHOUT SHIFT. ON SR WITH HR OF 95 ON TELE MONITOR. IV ACCESS ON RIGHT UPPER ARM MIDLINE INTACT, PATENT, FLUSHES WELL, NO S/S INFILTRATION NOTED. ALL SAFETY MEASURES IMPLEMENTED. ALL NEEDS MET AND ANTICIPATED. EMPTIED 500 ML OF DARK YELLOW COLORED URINE, NO HEMATURIA AND NO SEDIMENTATION NOTED. WILL ENDORSE TO INCOMING NURSE FOR CONTINUITY OF CARE.
--- NOTE | 2022-08-14 19:47 | NUR ---
OPHTHALMIC LENS INSPECTOR OPENING NOTE RECEIVED PATIENT IN BED AWAKE ALERT ORIENTED X 2, HAITIAN SPEAKING, VERBALLY RESPONSIVE WITH DELAYED SPEECH NOTED, ON 2L OXYGEN VIA NASAL CANNULA, O2 94% IV SITE IS ON RIGHT UPPER ARM MIDLINE INTACT PATENT RUNNING NS AT TKO, ON TELEMONITORING CURRENTLY READING SR, PT IS INCONTINENT BOWEL/BLADDER, WITH FEMALE PUREWICK IN PLACE, SAFETY MEASURES IMPLEMENTED, BED IN LOWEST AND LOCKED POSITION, BED ALARM IS ON, WILL CONTINUE TO MONITOR THROUGHOUT THE SHIFT.
[2022-08-14 20:00] VITALS: BP 136/67
[2022-08-15] VITALS: BP 124/64
[2022-08-15] MEDS: IPRATROPIUM/ALBUTEROL INHALER IH SCH (01:30)
[2022-08-15 04:00] VITALS: BP 133/73
--- NOTE | 2022-08-15 06:55 | NUR ---
CONTINUOUS IMPROVEMENT INTERN CLOSING NOTE PATIENT REMAINS IN BED AWAKE ALERT ORIENTED X 1, GHANAIAN SPEAKING, VERBALLY RESPONSIVE WITH DELAYED SPEECH NOTED, ON 2L OXYGEN VIA NASAL CANNULA WITH NOCTURNAL BIPAP AT NIGHT, O2 94% IV SITE IS ON RIGHT UPPER ARM MIDLINE INTACT AND PATENT, ON TELEMONITORING CURRENTLY READING SR, PT IS INCONTINENT BOWEL/BLADDER, WITH FEMALE PUREWICK IN PLACE, SAFETY MEASURES IMPLEMENTED, BED IN LOWEST AND LOCKED POSITION, BED ALARM IS ON, WILL ENDORSE TO AM SHIFT NURSE FOR CONTINUITY OF CARE.
[2022-08-15 08:00] VITALS: BP 108/72
[2022-08-15] MEDS: CARVEDILOL 6.25 MG TABLET PO SCH (09:54)
[2022-08-15] MEDS: PANTOPRAZOLE 40 MG TABLET.DR PO SCH (09:54)
[2022-08-15] MEDS: CARBAMAZEPINE 200 MG TABLET PO SCH (09:54)
[2022-08-15] MEDS: HEPARIN SODIUM, PORCINE 5000 UNITS/1 ML VIAL SQ SCH (09:55)
[2022-08-15] MEDS: DEXAMETHASONE SOD PHOSPHATE 10 MG/ML VIAL IV SCH (09:55)
[2022-08-15] MEDS: CEFTRIAXONE 2 G in IV D5W 100 ML IV SCH (11:20)
[2022-08-15 12:00] VITALS: BP 111/49
--- NOTE | 2022-08-15 15:47 | NUR ---
RN NOTE CALLED AND GAVE TO REPORT TO PALMYRA TO OPAL HODGES. [phone]. [facility] VIA AMBULANCE AROUND 1600.
--- NOTE | 2022-08-15 16:16 | NUR ---
RN NOTE PATIENT WAS PICKED UP BY [facility]. ALL PATIENT BELONGINGS ACCOUNTED FOR AND DISCHARGE PACKET GIVEN TO AMBULANCE CREW. ALL VITALS SIGNS WNL. ID BAND AND TELE BOX REMOVED. CHARGE NURSE AWARE
== END 2022-08-15 21:42 | disposition home health service (06) | DRG 177 ==
LOC: ER 16:51 → TELE-TD 21:41 → TELE1 22:14 → ICU 08-09 16:51 → TELE-TD 08-11 18:41 → UNDODISIN 08-11 18:57 → TELE1 08-12 13:05
PROVIDERS: ADMIT Nurse Practitioner Acute Care
PROC: 05H933Z Insertion of Infusion Device into Right Brachial Vein, Percutaneous Approach (ICD-10-PCS; 2022-08-07)
PROC: 5A09557 Assistance with Respiratory Ventilation, Greater than 96 Consecutive Hours, Continuous Positive Airway Pressure (ICD-10-PCS; principal; 2022-08-08)
DX: U07.1 COVID-19 (principal); G93.41 Metabolic encephalopathy; N17.0 Acute kidney failure with tubular necrosis; J12.82 Pneumonia due to coronavirus disease 2019; I50.33 Acute on chronic diastolic (congestive) heart failure; J96.21 Acute and chronic respiratory failure with hypoxia; J96.22 Acute and chronic respiratory failure with hypercapnia; E66.2 Morbid (severe) obesity with alveolar hypoventilation; Z68.41 Body mass index [BMI] 40.0-44.9, adult; J98.11 Atelectasis; G40.909 Epilepsy, unspecified, not intractable, without status epilepticus; F81.9 Developmental disorder of scholastic skills, unspecified; G31.84 Mild cognitive impairment of uncertain or unknown etiology; I11.0 Hypertensive heart disease with heart failure; E88.09 Other disorders of plasma-protein metabolism, not elsewhere classified; E87.6 Hypokalemia; Z78.9 Other specified health status
CPT/HCPCS: 36410; 36415; 36600; 71045-TC; 80048-TC; 80053-TC; 80061-TC; 80076-TC; 82550-TC; 82728-TC; 82803-TC; 83605-TC; 83615-TC; 83735-TC; 83880; 84100-TC; 85025-TC; 85378-TC; 85652-TC; 86140-TC; 87040-TC; 87081-TC; 93307-TC; 94660; 94760-TC; 94799-TC; 97110-TC; 97116-TC; 97530-TC; C9113; C9803; G0378; J0456; J0696; J1100; J1644; J1940; J2930; J7040; J7050; J7060

== ENCOUNTER 2023-08-09 09:46 | Emergency (ER) | payer MEDICARE, OTHER ==
[~2023-08-09] VITALS: Ht 165.1 cm; Wt 99.8 kg
[~2023-08-09 09:46] MED LIST: ALBU2SYR3 PO; CARB200T PO; CARB200T8 PO; CARV12.52 PO; CLOT15CR5 TD; ROSU10TA2 PO
[2023-08-09] MEDS ORDERED: IV NS 0.9% 1,000 ML BAG IV ONE (10:00)
[2023-08-09] MEDS ORDERED: ETOMIDATE 2 MG/ML VIAL IV ONE ×2 (10:30→12:16)
[2023-08-09] MEDS ORDERED: NICARDIPINE HCL 40 MG in IV NS 0.9% 184 ML IV PRN (10:30)
[2023-08-09] MEDS ORDERED: ROCURONIUM BROMIDE 100 MG/10 ML VIAL IV ONE (10:30)
[2023-08-09] MEDS ORDERED: LEVETIRACETAM (500MG) 1,000 MG in IV NS 0.9% 90 ML IV SCH (10:30)
[2023-08-09] MEDS ORDERED: NICARDIPINE IN NACL, ISO-OSM 200 ML IV PRN (11:00)
[2023-08-09 11:10] LABS: BASOPHILS % (AUTO) 0.5 % (0.0-2.0); EOSINOPHILS % (AUTO) 0.6 % (0.0-6.0); HEMATOCRIT 31 % (33-45); HEMOGLOBIN 10.6 g/dL (11.5-14.8); LYMPHOCYTES # (AUTO) 1.4 K/uL (0.8-4.8); LYMPHOCYTES % (AUTO) 23.8 % (20.0-44.0); MEAN CORPUSCULAR HEMOGLOBIN 31 PG (26.0-33.0); MEAN CORPUSCULAR HGB CONC 34 g/dl (31.0-36.0); MEAN CORPUSCULAR VOLUME 89 fL (82-100); MONOCYTES # (AUTO) 0.3 K/uL (0.1-1.30); MONOCYTES % (AUTO) 5.6 % (2.0-12.0); NEUTROPHILS # (AUTO) 4.2 K/uL (1.8-8.9); NEUTROPHILS % (AUTO) 69.5 % (43.0-81.0); PLATELET COUNT (AUTO) 141 K/uL (150-450); RED BLOOD CELL COUNT(AUTO) 3.47 MIL/uL (4.0-5.2); RED CELL DISTRIBUTION WIDTH 13.3 % (11.5-15.0)
[2023-08-09 11:17] LABS: INR 0.99 (0.91-1.10); PARTIAL THROMBOPLASTIN TIME 24.4 SEC (24.3-34.3); PROTHROMBIN TIME 10.5 SECS (9.2-11.1)
[2023-08-09 11:35] LABS: LACTIC ACID 0.6 mmol/L (0.4-2.0)
[2023-08-09 11:40] LABS: SERUM AMMONIA 28 umol/L (11-32)
[2023-08-09 11:44] LABS: ACETAMINOPHEN < 10 ug/ml (10-30); ALANINE AMINOTRANSFERASE 9 U/L (12-78); ALBUMIN 2.9 g/dL (3.4-5.0); ALCOHOL, BLOOD < 3 mg/dL (0-10); ALKALINE PHOSPHATASE 118 U/L (46-116); ASPARTATE AMINOTRANSFERASE 15 U/L (15-37); BILIRUBIN,DIRECT 0.2 mg/dL (0.0-0.2); BILIRUBIN,TOTAL 0.4 mg/dL (0.2-1.0); CALCIUM, SERUM 8.1 mg/dL (8.5-10.1); CARBON DIOXIDE 34 mmol/L (21-32); CHLORIDE 105 mmol/L (98-107); CREATININE 1.2 mg/dL (0.6-1.3); GLUCOSE 153 mg/dL (74-106); POTASSIUM 3.4 mmol/L (3.5-5.1); SALICYLATE 0.4 mg/dL (2.8-20.0); SODIUM SERUM 141 mmol/L (136-145); TOTAL PROTEIN, SERUM 6.2 g/dL (6.4-8.2); UREA NITROGEN, BLOOD 15 mg/dL (7-18)
[2023-08-09 12:04] LABS: THYROID STIMULATING HORMONE 0.839 uIU/mL (0.358-3.74)
[2023-08-09 12:08] LABS: APPEARANCE,URINE CLEAR (CLEAR); BILIRUBIN,URINE NEGATIVE (NEGATIVE); BLOOD, URINE TRACE-INTA Ery/uL (NEGATIVE); COLOR,URINE YELLOW (YELLOW); KETONES,URINE NEGATIVE (NEGATIVE); LEUKOCYTE ESTERASE ,URINE NEGATIVE (NEGATIVE); NITRITE, URINE NEGATIVE (NEGATIVE); PROTEIN,URINE 1+ mg/dl (NEGATIVE); UGLUCOSE NEGATIVE (NEGATIVE); UROBILINOGEN,URINE 0.2 EU/dL (0.2)
[2023-08-09 12:11] LABS: ADD URINE CULTURE NO; BACTERIA,URINE None seen /HPF (None Seen); RBC,URINE 0-2 /HPF (0-2); SQUAMOUS EPITHELIAL CELL,UR Rare /HPF (None Seen); WBC,URINE 0-2 /HPF (0-3)
[2023-08-09] MEDS ORDERED: ROCURONIUM BROMIDE 50 MG/5 ML IV ONE (12:16)
[2023-08-09 12:20] VITALS: BP 122/77; TEMP 97.7; O2SAT 100
[2023-08-09 12:23] LABS: AMPHETAMINE, URINE NEGATIVE (NEGATIVE); BARBITURATE, URINE NEGATIVE (NEGATIVE); BENZODIAZEPINE, URINE NEGATIVE (NEGATIVE); CANNABINOID, URINE NEGATIVE (NEGATIVE); COCCAINE, URINE NEGATIVE (NEGATIVE); OPIATE, URINE NEGATIVE (NEGATIVE); PHENCYCLIDINE SCREEN,URINE NEGATIVE (NEGATIVE)
== END 2023-08-09 12:20 | disposition short-term general hospital (02) ==
LOC: ER 09:46
DX: I61.5 Nontraumatic intracerebral hemorrhage, intraventricular (principal); R56.9 Unspecified convulsions; R41.82 Altered mental status, unspecified; I10 Essential (primary) hypertension; Z88.0 Allergy status to penicillin; Z20.822 Contact with and (suspected) exposure to COVID-19
CPT/HCPCS: 36556; 36569; 99291; 96365; 96361 ×2; 31500; 93005; 71045 ×2; 72125; 70450; 82140; 85025; 80048; 87040 ×2; 87086; 83605; 80076; 81001; 36415; 84443; 84484; 85730; 80143; 80320; 80307; J7030 ×2; J3490; A4223 ×2; J1953; G0480; J7050